=== PATIENT | female | born 1990 | race Caucasian/White ===

== ENCOUNTER → 2016-07-12 | Outpatient (CLI) | payer OTHER ==
--- NOTE | 2016-07-12 11:20 | REP ---
Clinical: Bronchitis type symptoms . Comparison: None . Technique: PA and lateral. Findings: The mediastinum and cardiac silhouette are normal. The lung rojo are clear and without acute consolidation, effusion, or pneumothorax. The skeletal structures are intact and normal. Impression: 1. No focal consolidation. Signed by Jesse Collins MD 07/12/2016 11:12 A
== END ==
LOC: M WUC 10:41
PROVIDERS: ATTEND Physician Assistant
DX: J20.9 Acute bronchitis, unspecified (principal)

== ENCOUNTER 2016-07-22 13:32 | Emergency (ER) | payer OTHER ==
--- NOTE | 2016-07-22 15:28 | EDDOCDS ---
Physician Documentation [facility] Name: Janel Pisano Age: 25 yrs Sex: Female : 1990 Arrival Date: 07/22/2016 Time: 13:32 Bed TR8 Private MD: NO PRIMARY PHYSICIAN, . Disposition: 07/22/16 14:39 Discharged to Home/Self Care. Impression: Cough. - Condition is Stable. - Discharge Instructions: Cough, Adult. - Prescriptions for Mucinex 600 mg - take 1 tablet by ORAL route 2 times per day; 30 tablet. benzonatate 200 mg Oral Capsule - take 1 capsule by ORAL route 3 times per day As needed; 30 capsule. - Medication Reconciliation, Local Pharmacy Hours form. - [facility]; When: Call to arrange an appointment; Reason: Recheck today's complaints, To establish care. Follow up: Min Singer; When: As needed; Reason: Further diagnostic work-up. - Problem is new. - Symptoms are unchanged. Historical: - Allergies: no known allergies; - Home Meds: 1. Albuterol Nebulizer as needed (Last dose: 07/22/2016 08:30) 2. Omnicef Unknown Oral twice a day (Last dose: 07/22/2016) - PMHx: none; - PSHx: none; - Social history: Smoking status: Patient states was never smoker of tobacco. No barriers to communication noted, The patient speaks fluent Comoran, Speaks appropriately for age. - Family history: Not pertinent. - : The pt / caregiver states he / she is not on anticoagulants. Home medication list is obtained from the patient. - Exposure Risk Screening:: None identified. 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 7 in. (170.18 cm) (R); Pain 2/10; 13:34 Body Mass Index 22.71 (65.77 kg, 170.18 cm) gr2 MDM: 14:27 Financial registration complete. lg 14:35 [facility] Payment Agreement was scanned into [employer] and attached to record. lg 14:36 [facility] ordered. ar2 14:42 Misc Philosophy Faculty Order complete. sew 14:43 B PERTUSSIS/PARAPERTUSS BY PCR Ordered. EDMS Signatures: Dispatcher MedHost EDMS Sheyla Blackmon, Reg Reg lg Love Ray RN RN kr3 Milan Looney, PAYakelinC PA-C ar2 Deandra Blanco RN RN pml Wallace, Sarah sew The chart was reviewed and I authenticate all verbal orders and agree with the evaluation and treatment provided.Attachments: 14:35 [facility] [place] lg MTDD
--- NOTE | 2016-07-22 15:28 | EDDOCDS ---
Nurse's Notes [facility] Name: Janel Pisano Age: 25 yrs Sex: Female : 1990 Arrival Date: 07/22/2016 Time: 13:32 Bed TR8 Private MD: NO PRIMARY PHYSICIAN, . Diagnosis: Cough Presentation: 07/22 13:38 Presenting complaint: Patient states: cough for over 1 month. reports has been kr3 evaluated by local [facility] times 4. Has been treated with Amoxicillin. Omnicef. prednisone times 2, inhaler and nebulizer with no improvement. Adult Sepsis Screening: The patient does not have new or worsening altered mentation. Patient's respiratory rate is less than 22. Systolic blood pressure is greater than 100. Patient has a qSOFA score of 0- Negative Sepsis Screen. Suicide/Homicide risk assessment- the patient denies having any suicidal and/or homicidal ideations and does not present with any other emotional, behavioral or mental health complaints. Status: Patient is not a answering service agent or dependent. Transition of care: patient was not received from another setting of care. 13:38 Acuity: CAT Level 4 kr3 13:38 Method Of Arrival: Walkin/Carried/Asstd kr3 Triage Assessment: 13:40 General: Appears in no apparent distress, comfortable, Behavior is cooperative. Pain: kr3 Denies pain. Pt Declines HIV testing. Neurological: Level of Consciousness is awake, alert. EENT: Denies nasal congestion. Respiratory: Reports shortness of breath on exertion cough that is productive. Derm: Skin is normal. 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 Albuterol Nebulizer as needed (Last dose: 07/22/2016 08:30) 2. Omnicef Unknown Oral twice a day (Last dose: 07/22/2016) - PMHx: none; - PSHx: none; - Social history: Smoking status: Patient states was never smoker of tobacco. No barriers to communication noted, The patient speaks fluent Welsh, Speaks appropriately for age. - Family history: Not pertinent. - : The pt / caregiver states he / she is not on anticoagulants. Home medication list is obtained from the patient. - Exposure Risk Screening:: None identified. Screenin:26 Screening information is obtained from the patient. Fall risk: No risks identified. pml Assistance ADL's: requires no assistance with activities of daily living. Abuse/DV Screen: The patient / caregiver reports he/she is: not in a situation that causes fear, pain or injury. Nutritional screening: No deficits noted. Advance Directives: Currently, there is no health care proxy. home support is adequate. Assessment: 15:26 General: Appears in no apparent distress, Behavior is appropriate for age, cooperative. pml Pain: Denies pain. Neurological: Level of Consciousness is awake, alert, Oriented to person, place, time. Cardiovascular: Capillary refill < 3 seconds. Respiratory: Airway is patent Respiratory effort is even, unlabored, Respiratory pattern is regular, symmetrical, Breath sounds are clear bilaterally. Reports cough that is non-productive, persistent. Derm: Skin is pink, warm & dry. Vital Signs: 13:34 BP 134 / 81; Pulse 87; Resp 18 S; Temp 97.5(O); Pulse Ox 100% on R/A; Weight 65.77 kg gr2 (R); Height 5 ft. 7 in. (170.18 cm) (R); Pain 2/10; 13:34 Body Mass Index 22.71 (65.77 kg, 170.18 cm) gr2 Vitals: 13:34 Log In Time: July 22, 2016 at 13:34. gr2 ED Course: 13:33 Patient visited by Tad De. gr2 13:33 Patient moved to Waiting gr2 13:34 NO PRIMARY PHYSICIAN, . is Private Physician. gr2 13:35 Patient visited by Tda De. gr2 13:35 Patient moved to Pre RCE gr2 13:40 Triage Initiated kr3 13:57 Patient moved to Triage 2 pml 14:14 Milan Looney PA-C is PHCP. ar2 14:14 Santo Cao MD is Attending Physician. ar2 14:14 Patient visited by Milan Looney PA-C. ar2 14:35 [facility] Payment Agreement was scanned into [employer] and attached to record. lg 14:38 Min Singer is Referral Physician. ar2 15:17 [facility] is Referral Physician. ar2 15:26 [place]8 [facility] [place] The patient / caregiver is instructed regarding the plan of care and ED course. Patient pml has correct armband on for positive identification. Placed in gown. Bed in low position. Call light in reach. 15:26 No IV's were initiated during this patient's visit. No procedures done that require pml assistance. Order Results: There are currently no results for this order. Outcome: 14:39 Discharge ordered by Provider. ar2 15:26 Discharge Assessment: Patient awake, alert and oriented x 3. No cognitive and/or pml functional deficits noted. Patient verbalized understanding of disposition instructions. patient administered narcotics - no. The following High Risk Discharge criteria are identified: None. Discharged to home ambulatory. Condition: good Condition: stable. Discharge instructions given to patient, Instructed on discharge instructions, follow up and referral plans. medication usage, Demonstrated understanding of instructions, medications, Pt was receptive of discharge instructions/ teaching. Prescriptions given X 2. No special radiology studies were completed. Property sent home with patient. 15:27 Patient left the ED. pml Signatures: Sheyla Blackmon, Fransico Reg lg Love Ray,RN RN kr3 Milan Looney PA-C PACoco ar2 Deandra Blanco,RN RN pml Marleny Lin Gainslee gr2 MTDD
--- NOTE | 2016-07-24 16:29 | EDDOCDS ---
[facility]: Janel Pis[facility] Age: 25 yrs Sex: Female : 1990 Arrival Date: 07/22/2016 Time: 13:32 Bed TR8 Private MD: NO PRIMARY PHYSICIAN, . Disposition: 07/22/16 14:39 Discharged to Home/Self Care. Impression: Cough. - Condition is Stable. - Discharge Instructions: Cough, Adult. - Prescriptions for Mucinex 600 mg - take 1 tablet by ORAL route 2 times per day; 30 tablet. benzonatate 200 mg Oral Capsule - take 1 capsule by ORAL route 3 times per day As needed; 30 capsule. - Medication Reconciliation, Local Pharmacy Hours form. - [facility]; When: Call to arrange an appointment; Reason: Recheck today's complaints, To establish care. Follow up: Min Singer; When: As needed; Reason: Further diagnostic work-up. - Problem is new. - Symptoms are unchanged. Historical: - Allergies: no known allergies; - Home Meds: 1. Albuterol Nebulizer as needed (Last dose: 07/22/2016 08:30) 2. Omnicef Unknown Oral twice a day (Last dose: 07/22/2016) - PMHx: none; - PSHx: none; - Social history: Smoking status: Patient states was never smoker of tobacco. No barriers to communication noted, The patient speaks fluent Sammarinese, Speaks appropriately for age. - Family history: Not pertinent. - : The pt / caregiver states he / she is not on anticoagulants. Home medication list is obtained from the patient. - Exposure Risk Screening:: None identified. 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 7 in. (170.18 cm) (R); Pain 2/10; 13:34 Body Mass Index 22.71 (65.77 kg, 170.18 cm) gr2 MDM: 14:27 Financial registration complete. lg 14:35 [facility] Payment Agreement was scanned into [employer] and attached to record. lg 14:36 [facility] Land[facility] ordered. ar2 14:42 Misc Landscape Manager Order complete. sew 14:43 B PERTUSSIS/PARAPERTUSS BY PCR Ordered. EDMS 07/23 11:45 T-Sheet-- Draft Copy was scanned into [employer] and attached to record. gb Signatures: Dispatcher MedHost EDMS Keri Love, Reg Reg gb Sheyla Blackmon, Reg Reg lg Love Ray RN RN kr3 Milan Looney, PA-C PA-C ar2 Deandra Blanco RN RN Marleny Gaines The chart was reviewed and I authenticate all verbal orders and agree with the evaluation and treatment provided.Attachments: 07/22 14:35 [facility] [place] Payment Agreement lg 07/23 11:45 T-Sheet-- Draft Copy gb Chart Complete MTDD
--- NOTE | 2016-07-24 16:29 | EDDOCDS ---
Physician Documentation [facility] Name: Janel Pisano Age: 25 yrs Sex: Female : 1990 Arrival Date: 07/22/2016 Time: 13:32 Bed TR8 Private MD: NO PRIMARY PHYSICIAN, . Disposition: 07/22/16 14:39 Discharged to Home/Self Care. Impression: Cough. - Condition is Stable. - Discharge Instructions: Cough, Adult. - Prescriptions for Mucinex 600 mg - take 1 tablet by ORAL route 2 times per day; 30 tablet. benzonatate 200 mg Oral Capsule - take 1 capsule by ORAL route 3 times per day As needed; 30 capsule. - Medication Reconciliation, Local Pharmacy Hours form. - Follow up[facility]; When: Call to arrange an appointment; Reason: Recheck today's complaints, To establish care. Follow up: Min Singer; When: As needed; Reason: Further diagnostic work-up. - Problem is new. - Symptoms are unchanged. Historical: - Allergies: no known allergies; - Home Meds: 1. Albuterol Nebulizer as needed (Last dose: 07/22/2016 08:30) 2. Omnicef Unknown Oral twice a day (Last dose: 07/22/2016) - PMHx: none; - PSHx: none; - Social history: Smoking status: Patient states was never smoker of tobacco. No barriers to communication noted, The patient speaks fluent [place], Speaks appropriately for age. - Family history: Not pertinent. - : The pt / caregiver states he / she is not on anticoagulants. Home medication list is obtained from the patient. - Exposure Risk Screening:: None identified. 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 7 in. (170.18 cm) (R); Pain 2/10; 13:34 Body Mass Index 22.71 (65.77 kg, 170.18 cm) gr2 MDM: 14:27 Financial registration complete. lg 14:35 [facility] Payment Agreement was scanned into [employer] and attached to record. lg 14:36 [facility] Aircraft Engine Installer Order ordered. ar2 14:42 Misc Aircraft Engine Installer Order complete. sew 14:43 B PERTUSSIS/PARAPERTUSS BY PCR Ordered. EDMS 07/23 11:45 T-Sheet-- Draft Copy was scanned into [employer] and attached to record. gb Signatures: Dispatcher [employer] EDMS Keri Love, Reg Reg gb Sheyla Blackmon, Reg Reg lg Love Ray RN RN kr3 Milan Looney, PA-C PA-C ar2 Deandra Blanco RN RN Marleny Gaines The chart was reviewed and I authenticate all verbal orders and agree with the evaluation and treatment provided.Attachments: 07/22 14:35 [facility] [place] Agreement lg 07/23 11:45 T-Sheet-- Draft Copy gb Chart Complete MTDD
--- NOTE | 2016-07-24 16:29 | EDDOCDS ---
Nurse's Notes [facility] Name: Janel Pisano Age: 25 yrs Sex: Female : 1990 Arrival Date: 07/22/2016 Time: 13:32 Bed TR8 Private MD: NO PRIMARY PHYSICIAN, . Diagnosis: Cough Presentation: 07/22 13:38 Presenting complaint: Patient states: cough for over 1 month. reports has been kr3 evaluated by local [facility] times 4. Has been treated with Amoxicillin. Omnicef. prednisone times 2, inhaler and nebulizer with no improvement. Adult Sepsis Screening: The patient does not have new or worsening altered mentation. Patient's respiratory rate is less than 22. Systolic blood pressure is greater than 100. Patient has a qSOFA score of 0- Negative Sepsis Screen. Suicide/Homicide risk assessment- the patient denies having any suicidal and/or homicidal ideations and does not present with any other emotional, behavioral or mental health complaints. 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 Transition of care: patient was not received from another setting of care. 13:38 Acuity: CAT Level 4 kr3 13:38 Method Of Arrival: Walkin/Carried/Asstd kr3 Triage Assessment: 13:40 General: Appears in no apparent distress, comfortable, Behavior is cooperative. Pain: kr3 Denies pain. Pt Declines HIV testing. Neurological: Level of Consciousness is awake, alert. EENT: Denies nasal congestion. Respiratory: Reports shortness of breath on exertion cough that is productive. Derm: Skin is normal. 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 Albuterol Nebulizer as needed (Last dose: 07/22/2016 08:30) 2. Omnicef Unknown Oral twice a day (Last dose: 07/22/2016) - PMHx: none; - PSHx: none; - Social history: Smoking status: Patient states was never smoker of tobacco. No barriers to communication noted, The patient speaks fluent Mongolian, Speaks appropriately for age. - Family history: Not pertinent. - : The pt / caregiver states he / she is not on anticoagulants. Home medication list is obtained from the patient. - Exposure Risk Screening:: None identified. Screenin:26 Screening information is obtained from the patient. Fall risk: No risks identified. pml Assistance ADL's: requires no assistance with activities of daily living. Abuse/DV Screen: The patient / caregiver reports he/she is: not in a situation that causes fear, pain or injury. Nutritional screening: No deficits noted. Advance Directives: Currently, there is no health care proxy. home support is adequate. Assessment: 15:26 General: Appears in no apparent distress, Behavior is appropriate for age, cooperative. pml Pain: Denies pain. Neurological: Level of Consciousness is awake, alert, Oriented to person, place, time. Cardiovascular: Capillary refill < 3 seconds. Respiratory: Airway is patent Respiratory effort is even, unlabored, Respiratory pattern is regular, symmetrical, Breath sounds are clear bilaterally. Reports cough that is non-productive, persistent. Derm: Skin is pink, warm & dry. Vital Signs: 13:34 BP 134 / 81; Pulse 87; Resp 18 S; Temp 97.5(O); Pulse Ox 100% on R/A; Weight 65.77 kg gr2 (R); Height 5 ft. 7 in. (170.18 cm) (R); Pain 2/10; 13:34 Body Mass Index 22.71 (65.77 kg, 170.18 cm) gr2 Vitals: 13:34 Log In Time: July 22, 2016 at 13:34. gr2 ED Course: 13:33 Patient visited by Tad De. gr2 13:33 Patient moved to Waiting gr2 13:34 NO PRIMARY PHYSICIAN, . is Private Physician. gr2 13:35 Patient visited by Tad De. gr2 13:35 Patient moved to Pre RCE gr2 13:40 Triage Initiated kr3 13:57 Patient moved to Triage 2 pml 14:14 Milan Looney PA-C is PHCP. ar2 14:14 Santo Cao MD is Attending Physician. ar2 14:14 Patient visited by Milan Looney PA-C. ar2 14:35 [facility] Payment Agreement was scanned into [employer] and attached to record. lg 14:38 Min Singer is Referral Physician. ar2 15:17 [facility] is Referral Physician. ar2 15:26 Patient moved to TR8 [facility] 15:26 The patient / caregiver is instructed regarding the plan of care and ED course. Patient pml has correct armband on for positive identification. Placed in gown. Bed in low position. Call light in reach. 15:26 No IV's were initiated during this patient's visit. No procedures done that require pml assistance. 07/23 11:45 T-Sheet-- Draft Copy was scanned into [employer] and attached to record. gb Order Results: There are currently no results for this order. Outcome: 07/22 14:39 Discharge ordered by Provider. ar2 15:26 Discharge Assessment: Patient awake, alert and oriented x 3. No cognitive and/or pml functional deficits noted. Patient verbalized understanding of disposition instructions. patient administered narcotics - no. The following High Risk Discharge criteria are identified: None. Discharged to home ambulatory. Condition: good Condition: stable. Discharge instructions given to patient, Instructed on discharge instructions, follow up and referral plans. medication usage, Demonstrated understanding of instructions, medications, Pt was receptive of discharge instructions/ teaching. Prescriptions given X 2. No special radiology studies were completed. Property sent home with patient. 15:27 Patient left the ED. pml Signatures: Keri Love, Reg Reg gb Sheyla Blackmon, Reg Reg lg Love Ray,JADA RN kr3 Milan Looney, LISA PACoco ar2 Deandra Blanco,RN RN pml Marleny Lin Gainslee gr2 Chart Complete MTDDorcas
== END 2016-07-22 15:27 | disposition home or self-care (01) ==
LOC: M ED 13:32
DX: R05 Cough (principal)

== ENCOUNTER 2016-07-23 14:07 | Emergency (ER) | payer OTHER ==
[2016-07-23] MEDS ORDERED: IPRATROPIUM 0.5MG/ALBUTEROL 2.5MG INH SOL UD 3ML (DUONEB)(J7620) As Ordered ONE (15:12)
--- NOTE | 2016-07-23 15:23 | REP ---
Chest x-ray: Two views. History: Cough and shortness of breath. . Comparison study: July 12, 2016 . Findings: The lungs are well inflated and free of infiltrate. The pleural angles are sharp. The heart size is normal. Pulmonary vasculature is not increased. No significant bony abnormality is seen. Impression: Negative chest x-ray. Signed by Burt Dwyer MD 07/23/2016 03:14 P
[2016-07-23] MEDS ORDERED: predniSONE 20 MG TAB As Ordered ONE (16:11)
--- NOTE | 2016-07-23 16:18 | EDDOCDS ---
Nurse's Notes [facility] Name: Janel Pisano Age: 25 yrs Sex: Female : 1990 Arrival Date: 07/23/2016 Time: 14:07 Bed PR Private MD: Diagnosis: Acute bronchospasm Presentation: 07/23 14:15 Presenting complaint: Patient states: has been having a cough for a month and feels hs1 like she cant catch her breath. Patient states she was here yesterday and that the nebulizer has not been helping. Adult Sepsis Screening: The patient does not have new or worsening altered mentation. Patient's respiratory rate is less than 22. Systolic blood pressure is greater than 100. Patient has a qSOFA score of 0- Negative Sepsis Screen. Suicide/Homicide risk assessment- the patient denies having any suicidal and/or homicidal ideations and does not present with any other emotional, behavioral or mental health complaints. Status: Patient is not a agricultural service worker or dependent. Transition of care: patient was not received from another setting of care. 14:15 Acuity: CAT Level 4 hs1 14:15 Method Of Arrival: Walkin/Carried/Asstd hs1 Triage Assessment: 14:18 General: Appears in no apparent distress, Behavior is appropriate for age, cooperative. hs1 Pain: Location: right lateral posterior chest Pain currently is 4 out of 10 on a pain scale. HIV screening NA for this visit Offered previously. Respiratory: Airway is patent Respiratory effort is shallow, Respiratory pattern is regular, symmetrical. Derm: Skin is pink, warm & dry. normal. 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 Albuterol Inhl as needed (Last dose: 07/23/2016 10:00) 2. Omnicef Oral twice a day states last dose was today - PMHx: none; - PSHx: none; - Social history: Smoking status: Patient states was never smoker of tobacco. No barriers to communication noted, The patient speaks fluent Nepali, Speaks appropriately for age. - Family history: Not pertinent. - : The pt / caregiver states he / she is not on anticoagulants. Home medication list is obtained from the patient. - Exposure Risk Screening:: None identified. Screenin:16 Screening information is obtained from the patient. Fall risk: No risks identified. ml6 Assistance ADL's: requires no assistance with activities of daily living. Abuse/DV Screen: The patient / caregiver reports he/she is: not in a situation that causes fear, pain or injury. Nutritional screening: No deficits noted. Advance Directives: Currently, there is no health care proxy. home support is adequate. Assessment: 16:16 General: Appears in no apparent distress, Behavior is appropriate for age, cooperative. ml6 Pain: Denies pain. Neurological: No deficits noted. Cardiovascular: No deficits noted. Capillary refill < 3 seconds is brisk in bilateral fingers toes Heart tones S1 S2 present. Respiratory: Airway is patent Respiratory effort is even, unlabored, Respiratory pattern is regular, symmetrical, Breath sounds are clear bilaterally. Reports no respiratory complaints. the patients shortness of breath has resolved. GI: No deficits noted. Vital Signs: 14:09 BP 168 / 91; Pulse 90; Resp 16; Temp 99.0(O); Pulse Ox 100% on R/A; Weight 65.77 kg [facility] (R); Height 5 ft. 7 in. (170.18 cm) (R); Pain 0/10; 16:17 BP 144 / 75; Pulse 81; Resp 16; Temp 98.8(O); Pulse Ox 98% on R/A; Pain 0/10; ml6 14:09 Body Mass Index 22.71 (65.77 kg, 170.18 cm) [facility] Vitals: 14:09 Log In Time: July 23, 2016 at 14:07. [facility] ED Course: 14:08 Patient visited by Josh Valles PCA. jrd 14:08 Patient moved to Waiting jrd 14:11 Patient visited by Josh Valles PCA. jrd 14:11 Patient moved to Pre RCE jrd 14:16 Triage Initiated hs1 14:18 Patient moved to Triage 1 hs1 14:51 Milan Looney PA-C is PHCP. ar2 14:51 Jamie Sexton MD is Attending Physician. ar2 14:51 Patient visited by Milan Looney PA-C. ar2 15:01 Patient moved to PR1 / 25 ml6 15:28 [facility] Payment Agreement was scanned into MED[employer] and attached to record. gjb 15:57 Chest, 2 View (pa\E\lat) Returned. EDMS 16:02 Min Singer is Referral Physician. ar2 16:16 No IV's were initiated during this patient's visit. No procedures done that require ml6 assistance. 16:17 The patient / caregiver is instructed regarding the plan of care and ED course. ml6 Administered Medications: 15:33 Drug: Albuterol-Ipratropium 3 ml [ipratropium-albuterol 0.5 mg-3 mg(2.5 mg base)/3 mL js11 nebulization soln (3 mL)] Route: Inhalation; 16:10 Drug: predniSONE 60 mg [prednisone 20 mg tablet (3 tabs)] Route: PO; ml6 RT: 15:15 Initial Med Neb Given as ordered Patient was instructed and evaluated on procedure js11 Patient tolerated procedure well without adverse effect. Oxygen is room air. Pre Peak Flow: 200. Respiratory: Breath sounds with wheezes bilaterally. at expiration. 15:25 Post Peak Flow: 275. Respiratory: Breath sounds are clear bilaterally. js11 Order Results: Radiology Order: Chest, 2 View (pa\E\lat) Test: Chest, 2 View (pa\E\lat) REASON FOR EXAMINATION: cough, sob; Chest x-ray: Two views.; ; History: Cough and shortness of breath. .; ; Comparison study: July 12, 2016 .; ; Findings: The lungs are well inflated and free of infiltrate. The pleural; angles are sharp. The heart size is normal. Pulmonary vasculature is not; increased. No significant bony abnormality is seen.; ; Impression:; ; Negative chest x-ray.; ; ; Signed by; Burt Dwyer MD 07/23/2016 03:14 P; Outcome: 16:03 Discharge ordered by Provider. ar2 16:16 Discharge Assessment: patient administered narcotics - no. The following High Risk ml6 Discharge criteria are identified: None. Discharged to home ambulatory, with family. Condition: stable. Discharge instructions given to patient, Instructed on discharge instructions, follow up and referral plans. medication usage, Demonstrated understanding of instructions, medications, Pt was receptive of discharge instructions/ teaching. Prescriptions given X 1. No special radiology studies were completed. Property :Personal belongings accompany Pt. 16:17 Patient left the ED. ml6 Signatures: Dispatcher MedHost EDAK Robertshaw, Milan, LISA GONZALEZ ar2 Grady Newman, RN RN ml6 Radha Allen RN RN hs1 Jaylon Edward 11 Josh Valles, OLU EXCEL SPECIALIST jrd Anu Rollins LAVINIAD
--- NOTE | 2016-07-23 16:18 | EDDOCDS ---
Physician Documentation [facility] Name: Janel Pisano Age: 25 yrs Sex: Female : 1990 Arrival Date: 07/23/2016 Time: 14:07 Bed PR Private MD: Disposition: 07/23/16 16:03 Discharged to Home/Self Care. Impression: Acute bronchospasm. - Condition is Stable. - Discharge Instructions: Bronchospasm, Adult. - Prescriptions for Prednisone 20 mg Oral Tablet - take 1 tablet by ORAL route as directed Day 1-3: 3 po, day 4-7: 2 po, day 8-10: 1 po; 20 tablet. - Medication Reconciliation, Local Pharmacy Hours form. - Follow up: Min Singer; When: As previously arranged; Reason: Recheck today's complaints. Follow up: Emergency Department; When: As needed; Reason: Trouble breathing, Worsening of conditions. - Problem is new. - Symptoms have improved. Historical: - Allergies: No known drug Allergies; - Home Meds: 1. Albuterol Inhl as needed (Last dose: 07/23/2016 10:00) 2. Omnicef Oral twice a day states last dose was today - PMHx: none; - PSHx: none; - Social history: Smoking status: Patient states was never smoker of tobacco. No barriers to communication noted, The patient speaks fluent Italian, Speaks appropriately for age. - Family history: Not pertinent. - : The pt / caregiver states he / she is not on anticoagulants. Home medication list is obtained from the patient. - Exposure Risk Screening:: None identified. 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 7 in. (170.18 cm) (R); Pain 0/10; 16:17 BP 144 / 75; Pulse 81; Resp 16; Temp 98.8(O); Pulse Ox 98% on R/A; Pain 0/10; ml6 14:09 Body Mass Index 22.71 (65.77 kg, 170.18 cm) jrd MDM: 14:59 Albuterol-Ipratropium 3 ml Inhalation once ordered. ar2 14:59 Peak Flow Pre & Post ordered. ar2 15:01 Chest, 2 View (pa\E\lat) Ordered. EDMS 15:28 [facility] Payment Agreement was scanned into [employer] and attached to record. gjb 15:28 Financial registration complete. gjb 15:33 Peak Flow Pre & Post complete. js11 16:00 predniSONE 60 mg PO once; administer with food or milk ordered. ar2 Administered Medications: 15:33 Drug: Albuterol-Ipratropium 3 ml [ipratropium-albuterol 0.5 mg-3 mg(2.5 mg base)/3 mL js11 nebulization soln (3 mL)] Route: Inhalation; 16:10 Drug: predniSONE 60 mg [prednisone 20 mg tablet (3 tabs)] Route: PO; ml6 Signatures: Dispatcher MedHost EDTN Milan Looney PA-C PAYakelinC ar2 Grady Newman RN RN ml6 Radha Allen RN RN 1 Jaylon Edward js11 Anu Rollinsb The chart was reviewed and I authenticate all verbal orders and agree with the evaluation and treatment provided.Attachments: 15:28 [facility] Payment Agreement gjb MTDD
--- NOTE | 2016-07-25 17:19 | EDDOCDS ---
Physician Documentation [facility] Name: Janel Pisano Age: 25 yrs Sex: Female : 1990 Arrival Date: 07/23/2016 Time: 14:07 Bed PR Private MD: Disposition: 07/23/16 16:03 Discharged to Home/Self Care. Impression: Acute bronchospasm. - Condition is Stable. - Discharge Instructions: Bronchospasm, Adult. - Prescriptions for Prednisone 20 mg Oral Tablet - take 1 tablet by ORAL route as directed Day 1-3: 3 po, day 4-7: 2 po, day 8-10: 1 po; 20 tablet. - Medication Reconciliation, Local Pharmacy Hours form. - Follow up: Min Singer; When: As previously arranged; Reason: Recheck today's complaints. Follow up: Emergency Department; When: As needed; Reason: Trouble breathing, Worsening of conditions. - Problem is new. - Symptoms have improved. Historical: - Allergies: No known drug Allergies; - Home Meds: 1. Albuterol Inhl as needed (Last dose: 07/23/2016 10:00) 2. Omnicef Oral twice a day states last dose was today - PMHx: none; - PSHx: none; - Social history: Smoking status: Patient states was never smoker of tobacco. No barriers to communication noted, The patient speaks fluent Georgian, Speaks appropriately for age. - Family history: Not pertinent. - : The pt / caregiver states he / she is not on anticoagulants. Home medication list is obtained from the patient. - Exposure Risk Screening:: None identified. 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 7 in. (170.18 cm) (R); Pain 0/10; 16:17 BP 144 / 75; Pulse 81; Resp 16; Temp 98.8(O); Pulse Ox 98% on R/A; Pain 0/10; ml6 14:09 Body Mass Index 22.71 (65.77 kg, 170.18 cm) jrd MDM: 14:59 Albuterol-Ipratropium 3 ml Inhalation once ordered. ar2 14:59 Peak Flow Pre & Post ordered. ar2 15:01 Chest, 2 View (pa\E\lat) Ordered. EDMS 15: [facility] Payment Agreement was scanned into [employer] and attached to record. gjb 15: Financial registration complete. gjb 15: Peak Flow Pre & Post complete. js11 16:00 predniSONE 60 mg PO once; administer with food or milk ordered. ar2 07/24 11:55 T-Sheet-- Draft Copy was scanned into [employer] and attached to record. gb 11:55 Radiology Report was scanned into [employer] and attached to record. gb Administered Medications: 07/23 15:33 Drug: Albuterol-Ipratropium 3 ml [ipratropium-albuterol 0.5 mg-3 mg(2.5 mg base)/3 mL js11 nebulization soln (3 mL)] Route: Inhalation; 16:10 Drug: predniSONE 60 mg [prednisone 20 mg tablet (3 tabs)] Route: PO; ml6 Signatures: Dispatcher [employer] EDWI Keri Love, Reg Reg gb Milan Looney PA-C PACoco ar2 Grady Newman RN RN ml6 Radha Allen RN RN hs1 Jaylon Edward js11 Anu Rollins The chart was reviewed and I authenticate all verbal orders and agree with the evaluation and treatment provided.Attachments: 15: [facility] Payment Agreement [facility] 07/24 11:55 T-Sheet-- Draft Copy gb Chart Complete MTDD
--- NOTE | 2016-07-25 17:19 | EDDOCDS ---
Nurse's Notes [facility] Name: Janel Pisano Age: 25 yrs Sex: Female : 1990 Arrival Date: 07/23/2016 Time: 14:07 Bed PR Private MD: Diagnosis: Acute bronchospasm Presentation: 07/23 14:15 Presenting complaint: Patient states: has been having a cough for a month and feels hs1 like she cant catch her breath. Patient states she was here yesterday and that the nebulizer has not been helping. Adult Sepsis Screening: The patient does not have new or worsening altered mentation. Patient's respiratory rate is less than 22. Systolic blood pressure is greater than 100. Patient has a qSOFA score of 0- Negative Sepsis Screen. Suicide/Homicide risk assessment- the patient denies having any suicidal and/or homicidal ideations and does not present with any other emotional, behavioral or mental health complaints. Status: Patient is not a route service representative or dependent. Transition of care: patient was not received from another setting of care. 14:15 Acuity: CAT Level 4 hs1 14:15 Method Of Arrival: Walkin/Carried/Asstd hs1 Triage Assessment: 14:18 General: Appears in no apparent distress, Behavior is appropriate for age, cooperative. hs1 Pain: Location: right lateral posterior chest Pain currently is 4 out of 10 on a pain scale. HIV screening NA for this visit Offered previously. Respiratory: Airway is patent Respiratory effort is shallow, Respiratory pattern is regular, symmetrical. Derm: Skin is pink, warm & dry. normal. 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 Albuterol Inhl as needed (Last dose: 07/23/2016 10:00) 2. Omnicef Oral twice a day states last dose was today - PMHx: none; - PSHx: none; - Social history: Smoking status: Patient states was never smoker of tobacco. No barriers to communication noted, The patient speaks fluent Azeri, Speaks appropriately for age. - Family history: Not pertinent. - : The pt / caregiver states he / she is not on anticoagulants. Home medication list is obtained from the patient. - Exposure Risk Screening:: None identified. Screenin:16 Screening information is obtained from the patient. Fall risk: No risks identified. ml6 Assistance ADL's: requires no assistance with activities of daily living. Abuse/DV Screen: The patient / caregiver reports he/she is: not in a situation that causes fear, pain or injury. Nutritional screening: No deficits noted. Advance Directives: Currently, there is no health care proxy. home support is adequate. Assessment: 16:16 General: Appears in no apparent distress, Behavior is appropriate for age, cooperative. ml6 Pain: Denies pain. Neurological: No deficits noted. Cardiovascular: No deficits noted. Capillary refill < 3 seconds is brisk in bilateral fingers toes Heart tones S1 S2 present. Respiratory: Airway is patent Respiratory effort is even, unlabored, Respiratory pattern is regular, symmetrical, Breath sounds are clear bilaterally. Reports no respiratory complaints. the patients shortness of breath has resolved. GI: No deficits noted. Vital Signs: 14:09 BP 168 / 91; Pulse 90; Resp 16; Temp 99.0(O); Pulse Ox 100% on R/A; Weight 65.77 kg [facility] (R); Height 5 ft. 7 in. (170.18 cm) (R); Pain 0/10; 16:17 BP 144 / 75; Pulse 81; Resp 16; Temp 98.8(O); Pulse Ox 98% on R/A; Pain 0/10; ml6 14:09 Body Mass Index 22.71 (65.77 kg, 170.18 cm) [facility] Vitals: 14:09 Log In Time: July 23, 2016 at 14:07. [facility] ED Course: 14:08 Patient visited by Josh Valles PCA. jrd 14:08 Patient moved to Waiting jrd 14:11 Patient visited by Josh Valles PCA. jrd 14:11 Patient moved to Pre RCE jrd 14:16 Triage Initiated hs1 14:18 Patient moved to Triage 1 hs1 14:51 Milan Looney PA-C is PHCP. ar2 14:51 Jamie Sexton MD is Attending Physician. ar2 14:51 Patient visited by Milan Looney PA-C. ar2 15:01 Patient moved to PR1 / 25 ml6 15:28 [facility] Payment Agreement was scanned into [employer] and attached to record. gjb 15:57 Chest, 2 View (pa\E\lat) Returned. EDMS 16:02 Min Singer is Referral Physician. ar2 16:16 No IV's were initiated during this patient's visit. No procedures done that require ml6 assistance. 16:17 The patient / caregiver is instructed regarding the plan of care and ED course. ml6 07/24 11:55 T-Sheet-- Draft Copy was scanned into [employer] and attached to record. gb 11:55 Radiology Report was scanned into [employer] and attached to record. gb Administered Medications: 07/23 15:33 Drug: Albuterol-Ipratropium 3 ml [ipratropium-albuterol 0.5 mg-3 mg(2.5 mg base)/3 mL js11 nebulization soln (3 mL)] Route: Inhalation; 16:10 Drug: predniSONE 60 mg [prednisone 20 mg tablet (3 tabs)] Route: PO; ml6 RT: 15:15 Initial Med Neb Given as ordered Patient was instructed and evaluated on procedure js11 Patient tolerated procedure well without adverse effect. Oxygen is room air. Pre Peak Flow: 200. Respiratory: Breath sounds with wheezes bilaterally. at expiration. 15:25 Post Peak Flow: 275. Respiratory: Breath sounds are clear bilaterally. js11 Order Results: Radiology Order: Chest, 2 View (pa\E\lat) Test: Chest, 2 View (pa\E\lat) REASON FOR EXAMINATION: cough, sob; Chest x-ray: Two views.; ; History: Cough and shortness of breath. .; ; Comparison study: July 12, 2016 .; ; Findings: The lungs are well inflated and free of infiltrate. The pleural; angles are sharp. The heart size is normal. Pulmonary vasculature is not; increased. No significant bony abnormality is seen.; ; Impression:; ; Negative chest x-ray.; ; ; Signed by; Burt Dwyer MD 07/23/2016 03:14 P; Outcome: 16:03 Discharge ordered by Provider. ar2 16:16 Discharge Assessment: patient administered narcotics - no. The following High Risk ml6 Discharge criteria are identified: None. Discharged to home ambulatory, with family. Condition: stable. Discharge instructions given to patient, Instructed on discharge instructions, follow up and referral plans. medication usage, Demonstrated understanding of instructions, medications, Pt was receptive of discharge instructions/ teaching. Prescriptions given X 1. No special radiology studies were completed. Property :Personal belongings accompany Pt. 16:17 Patient left the ED. ml6 Signatures: Dispatcher [employer] EDMS Keri Love, Reg Reg Milan Suárez PA-C PA-C ar2 Grady Newman RN RN ml6 Radha Allen RN RN hs1 Jaylon Edward js11 Josh Valles PCA PCA jrd Beck, Gabriela gjb Chart Complete [facility]
--- NOTE | 2016-07-25 17:19 | EDDOCDS ---
Physician Documentation [facility] Name: Janel Pisano Age: 25 yrs Sex: Female : 1990 Arrival Date: 07/23/2016 Time: 14:07 Bed PR Private MD: Disposition: 07/23/16 16:03 Discharged to Home/Self Care. Impression: Acute bronchospasm. - Condition is Stable. - Discharge Instructions: Bronchospasm, Adult. - Prescriptions for Prednisone 20 mg Oral Tablet - take 1 tablet by ORAL route as directed Day 1-3: 3 po, day 4-7: 2 po, day 8-10: 1 po; 20 tablet. - Medication Reconciliation, Local Pharmacy Hours form. - Follow up: Min Singer; When: As previously arranged; Reason: Recheck today's complaints. Follow up: Emergency Department; When: As needed; Reason: Trouble breathing, Worsening of conditions. - Problem is new. - Symptoms have improved. Historical: - Allergies: No known drug Allergies; - Home Meds: 1. Albuterol Inhl as needed (Last dose: 07/23/2016 10:00) 2. Omnicef Oral twice a day states last dose was today - PMHx: none; - PSHx: none; - Social history: Smoking status: Patient states was never smoker of tobacco. No barriers to communication noted, The patient speaks fluent Yakut, Speaks appropriately for age. - Family history: Not pertinent. - : The pt / caregiver states he / she is not on anticoagulants. Home medication list is obtained from the patient. - Exposure Risk Screening:: None identified. 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 7 in. (170.18 cm) (R); Pain 0/10; 16:17 BP 144 / 75; Pulse 81; Resp 16; Temp 98.8(O); Pulse Ox 98% on R/A; Pain 0/10; ml6 14:09 Body Mass Index 22.71 (65.77 kg, 170.18 cm) jrd MDM: 14:59 Albuterol-Ipratropium 3 ml Inhalation once ordered. ar2 14:59 Peak Flow Pre & Post ordered. ar2 15:01 Chest, 2 View (pa\E\lat) Ordered. EDMS 15: REPLACED BY [facility] Payment Agreement was scanned into [employer] and attached to record. gjb 15: Financial registration complete. gjb 15: Peak Flow Pre & Post complete. js11 16:00 predniSONE 60 mg PO once; administer with food or milk ordered. ar2 07/24 11:55 T-Sheet-- Draft Copy was scanned into [employer] and attached to record. gb 11:55 Radiology Report was scanned into [employer] and attached to record. gb Administered Medications: 07/23 15:33 Drug: Albuterol-Ipratropium 3 ml [ipratropium-albuterol 0.5 mg-3 mg(2.5 mg base)/3 mL js11 nebulization soln (3 mL)] Route: Inhalation; 16:10 Drug: predniSONE 60 mg [prednisone 20 mg tablet (3 tabs)] Route: PO; ml6 Signatures: Dispatcher [employer] EDUT Keri Love, Reg Reg gb Milan Looney PA-C PACoco ar2 Grady Newman RN RN ml6 Radha Allen RN RN hs1 Jaylon Edward js11 Anu Rollins The chart was reviewed and I authenticate all verbal orders and agree with the evaluation and treatment provided.Attachments: 15: REPLACED BY [facility] Payment Agreement [facility] 07/24 11:55 T-Sheet-- Draft Copy gb Chart Complete MTDD
== END 2016-07-23 16:17 | disposition home or self-care (01) ==
LOC: M ED 14:07
DX: J98.01 Acute bronchospasm (principal)

== ENCOUNTER → 2016-07-24 | Outpatient (REF) | payer OTHER ==
[2016-07-24 13:48] LABS: BASO % 0.1 % (0.0-1.0); EOS # 0.2 K/mm3 (0.0-0.50); EOS % 1.5 % (0.0-3.0); LARGE UNSTAINED CELL # 0.1 K/mm3 (0.0-0.4); LARGE UNSTAINED CELL % 0.9 % (0.0-4.0); LYMPH # 1.3 K/mm3 (1.5-6.5); LYMPH % 8.3 % (24.0-44.0); MEAN CORPUSCULAR HEMOGLOBIN 30.3 pg (27.0-33.0); MEAN CORPUSCULAR HGB CONC 34.6 g/dl (32.0-36.5); MEAN CORPUSCULAR VOLUME 87.7 fl (80.0-96.0); MONO # 1.1 K/mm3 (0.0-0.8); MONO % 7.1 % (0.0-5.0); NEUTROPHILS # 12.6 K/mm3 (1.8-7.7); NEUTROPHILS % 82.1 % (36.0-66.0); PLATELET COUNT, AUTOMATED 418 k/mm3 (150-450); RED CELL DISTRIBUTION WIDTH 12.6 % (11.5-14.5); WHITE BLOOD COUNT 15.3 K/mm3 (4.0-10.0)
== END ==
LOC: M LAB REF 12:47
PROVIDERS: ATTEND Nurse Practitioner Adult Health
DX: R06.02 Shortness of breath (principal); R05 Cough